=== PATIENT | male | born 1940 | race Two or more races ===

== ENCOUNTER 2024-08-07 14:51 | Inpatient (IN) | payer MEDICARE, MEDICAID, SELFPAY ==
[2024-08-07] VITALS (15 sets, daily range): BP systolic 125–150; BP diastolic 74–102; PULSE 82–97; RESP 14–97; TEMP 36.1–36.7; O2SAT 91–97; BMI 34.4
--- NOTE | 2024-08-07 15:05 | XR_ITS ---
Examination: CT brain head without contrast. 2-D sagittal coronal reconstructions Date and time of exam:August 07, 2024 1538 hrs. Indications: Weakness headache and left arm weakness beginning 3 days ago CTDI: vol (mGy):53.6 DLP: (mGycm):1017 Technique: Multiple CT axial sections of the brain have been obtained, 5 mm slice thickness. Contrast has not been administered. 2-D sagittal, coronal reconstructions have been obtained Low dose protocols were performed. One or more of the following dose reduction techniques were used; automated exposure control, adjustment of the mA and/or KV according to patient size, use of iterative reconstruction technique. Findings: No significant ventricular enlargement. Intra-axial or extra-axial hemorrhage density is not seen. No mass effect or midline shift Basal cisterns are not remarkable. Fourth ventricle is midline. Cranial vault intact. Impression: Negative for acute hemorrhage, mass effect or midline shift As clinically warranted, consider brain MRI follow-up
--- NOTE | 2024-08-07 15:05 | EKG_ITS ---
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
--- NOTE | 2024-08-07 15:06 | PD.EDADULT ---
ED General RME/HPI General Chief complaint: Weakness Stated complaint: weakness to left arm, numbness Time Seen by Provider: 08/07/24 15:04 Arrival date/time: 08/07/24 14:51 CC: Left arm weakness HPI ongoing for the past 3 days denies fever chills shortness of breath difficulty breathing headache nausea vomiting diarrhea. No prior history of similar events. Patient has a history of hypertension. Patient denies chest pain facial droop slurred speech word salad shortness of breath or difficulty breathing. Review of the medical record show there is no prior visit to this facility. Related Data Allergies Allergy/AdvReac Type Severity Reaction Status Date / Time NKA* Allergy Uncoded 12/16/10 14:50 Review of Systems Review of Systems Narrative Review of Systems: GEN: No fever, no chills, no weight loss EYES: No discharge, no visual changes, no pain HEENT: No ear pain, no congestion, no sore throat PULM: No shortness of breath, no cough, no congestion CV: No chest pain, no dyspnea on exertion, no palpitations GI: No nausea, no vomiting, no diarrhea, no pain, no constipation : No frequency, no urgency, no dysuria MUSC/SKEL: No joint pain, no back pain+ left arm weakness SKIN: No rash PSYCH: No hallucinations, no depression HEME/LYMPH: No easy bleeding or bruising tendencies NEURO: No weakness, no headache ED Exam Narrative Physical exam: [General: Not in any acute distress Head normocephalic HEENT: Within acceptable limits Neck is supple nontender Chest equal chest rise nontender to palpation Respiratory: Clear to auscultation no wheezes crackles or rubs CV: Rate rhythm is regular no murmurs rubs or clicks Abdomen is distended secondary to body habitus soft nontender no masses positive bowel sounds all 4 quadrants Back: No CVA tenderness no spinous process tenderness from cervical spine thoracic and lumbar spine Skin: Intact no petechiae rash induration ulceration or crepitus Extremities: Left upper extremity weakness significant pronator drift, moving all extremity against resistance cap refill less than 2 seconds neurosensory intact Neuro: Awake alert oriented x3 Glascow coma 15 no focal deficits] Course Quality Measures none Orders Category Date Time Status EKG (ED ONLY) *Do not use* NOW Care 08/07/24 15:05 Completed Insert IV NOW Care 08/07/24 15:21 Active Consult to Neurology / Tele-Neurology Stat Cons 08/07/24 17:[address] head/brain wo con Stat Exams 08/07/24 15:05 Completed EKG (ED Only) Stat Exams 08/07/24 15:05 Draft B-Type Natriuretic Peptide Stat Lab 08/07/24 15:19 Completed CBC Stat Lab 08/07/24 15:19 Completed Comprehensive Metabolic Panel Stat Lab 08/07/24 15:19 Completed Drug Screen,Urine Stat Lab 08/07/24 16:07 Completed LDH (Lactate Dehydrogenase) Stat Lab 08/07/24 15:19 Completed Magnesium Stat Lab 08/07/24 15:19 Completed Partial Thromboplastin Time Stat Lab 08/07/24 15:19 Completed Prothrombin Time with INR Stat Lab 08/07/24 15:19 Completed Urinalysis Stat Lab 08/07/24 16:07 Completed Vital Signs Vital signs: Vital Signs Temperature 96.9 F 08/07/24 15:12 Pulse Rate 91 08/07/24 15:12 Respiratory Rate 19 08/07/24 15:12 Blood Pressure 133/82 H 08/07/24 15:12 Pulse Oximetry (%) 96 08/07/24 15:12 Oxygen Delivery Method Room Air 08/07/24 15:12 [facility] Patient data External records reviewed:: [facility] previous records Clinical information provided by:: patient and family Social determinants that could affect healthcare access:: none Patient has the following chronic illnesses:: Hypertension How is presenting disease/condition affected by chronic disease/condition?: uneffected by Evaluation data The following diagnostics were reviewed and interpreted by me:: lab results, radiology exam(s) and EKG tracing(s) Lab and/or radiology exams considered but not ordered:: CBC shows no acute leukocytosis anemia thrombocytopenia CMP shows no acute electrolyte imbalances renal impairment transaminitis or T. bili elevation CT is unremarkable for any acute finding quires emergent or meet intervention. EKG performed at 1528 shows ventricular rate of 82 ME interval 191 QRS of 133 QTc 423 there is sinus rhythm right bundle branch block. No old EKG for comparison. Interpretation Summary: Patient continues to have persistent weakness in the left upper extremity, patient's case discussed with Dr. Lockwood neurology who agrees the patient needs a workup for inpatient. Family and patient are in agreement with this plan patient's case discussed with Dr Erich chu Dr. Cordova, attending, who agrees to accept the patient for admission. Medications Medications considered but not ordered:: None none Medication administrations:: None Consultations Consultation(s) initiated? (list below): Yes Diagnosis Differential Diagnosis ED Complaint MDM: CVA TIA intercranial hemorrhage Most likely diagnosis given after review of the tests above:: CVA Admission Indicated Admission indicated?: indicated Explain why admission is indicated or not indicated:: Requires further medical management Admission Request Was there a request for admission?: No Disposition Plan Disposition Plan: Admit Medical Decision Making Differential Diagnosis Differential Diagnosis: CVA TIA intercranial hemorrhage Lab Data 08/07/24 15:19 08/07/24 15:19 Labs: Lab Results 08/07/24 08/07/24 Range/Units 15:19 16:07 WBC 8.8 (3.8-10.6) Thou/mm3 RBC 4.78 (4.50-5.90) Miln/mm3 Hgb 14.2 (13.5-16.0) g/dL Hct 41.9 (41.0-53.0) % MCV 88 (80-100) fL MCH 29.7 (25.0-35.0) pg MCHC 33.9 (31.0-37.0) g/dl RDW Std Deviation 41.0 (35.1-43.9) fL Plt Count 353 (140-440) Thou/mm3 Neut % (Auto) 66 (37-80) % Lymph % (Auto) 24 (10-50) % [place] % (Auto) 8 (0-12) % Eos % (Auto) 2 (0-10) % Baso % (Auto) 0 (0-2.5) % Neut # (Auto) 5.8 (1.8-7.7) Thou/mm3 Lymph # (Auto) 2.1 (1.0-4.8) Thou/mm3 [place] # (Auto) 0.7 (0.0-0.8) Thou/mm3 Eos # (Auto) 0.2 (0.0-0.5) Thou/mm3 Baso # (Auto) 0.0 (0.0-0.2) Thou/mm3 Immature Gran # (Auto) 0.02 H (0.00-0.00) Thou/mm3 Absolute Nucleated RBC 0.00 (0.00-0.00) Thou/mm3 Immature Gran % 0 (0-0) % Nucleated RBC % 0 (0) /100 WBC PT 10.7 (9.0-12.2) Seconds INR 1.0 (0.9-1.3) APTT 29.4 (22.0-36.0) Seconds Sodium 139 (136-145) mMol/L Potassium 4.3 (3.4-5.1) mMol/L Chloride 104 (98-107) mMol/L Carbon Dioxide 25.5 (20.0-31.0) mMol/L Anion Gap 10 (7-16) BUN 18 (9-23) mg/dL Creatinine 1.1 (0.6-1.3) mg/dL Estim Creat Clear Calc 47.3 L (>60) mL/min eGFR > 60 (60 - ) See Note BUN/Creatinine Ratio 16 (12-20) Ratio Glucose 109 H (74-106) mg/dL Calculated Osmolality 280 (275-295) Calcium 10.5 (8.3-10.6) mg/dL Corrected Calcium 10.5 H (8.5-10.1) mg/dL Magnesium 2.2 (1.6-2.6) mg/dL Total Bilirubin 0.3 (0.3-1.2) mg/dL AST 10 (0-34) U/L ALT 24 (10-49) U/L Alkaline Phosphatase 82 (46-116) U/L Lactate Dehydrogenase 164 (120-246) U/L B-Natriuretic Peptide < 20 (0-100) pg/mL Total Protein 7.4 (5.7-8.2) gm/dL Albumin 4.8 (3.4-4.8) gm/dL Globulin 2.6 (2.3-3.5) gm/dL Albumin/Globulin Ratio 1.8 (1.2-2.2) Ur Collection Type Clean Catch Urine Color Colorless A (Lt Yel-Yel) Urine Clarity Clear (Clear/Hazy) Urine pH 7.0 (5.0-7.0) Ur Specific [place] 1.009 (1.001-1.035) Urine Protein Negative (Neg - Trace) Urine Glucose (UA) Negative (Negative) Urine Ketones Negative (Negative) Urine Blood Negative (Negative) Urine Nitrite Negative (Negative) Urine Bilirubin Negative (Negative) Urine Urobilinogen (Auto) Negative (0.0-1.0) mg/dL Ur Leukocyte Esterase Negative (Negative) Urine RBC 1 (0-3) /hpf Urine WBC < 1 (0-5) /hpf Ur Squamous Epith Cells 0 (0-5) /hpf Urine Bacteria None (None) Urine Opiates Screen Negative (Negative) Urine Fentanyl Screen Negative (Negative) Ur Barbiturates Screen Negative (Negative) U Amphetamin/Meth Scrn Negative (Negative) U Benzodiazepines Scrn Negative (Negative) U Cocaine Metab Screen Negative (Negative) U Marijuana (THC) Screen Negative (Negative) Discharge Plan Plan Patient Disposition: Other Care w/in Hosp ([facility]) Patient condition on transfer: Stable Prescriptions/Referrals Referrals: Johny Worley FNP [Primary Care Provider] - In 1 week Problem List Clinical Impression: Left arm weakness Patient/Caregiver Discharge Instructions Print Language: Maltese Stand Alone Forms: Kristal Award Info., Patient Portal Info Letter CHIO/ALEX Supervising Physician NICOLAS Supervising Physician: Herb Santizo ENP
--- NOTE | 2024-08-07 15:30 | PC.NURSE ---
PT CAME IN WITH C/O LEFT ARM WEAKNESS SINCE 10 AM YESTERDAY. PER FAMILY PT BEGAN FEELING TINGLING IN BOTH ARMS 3 DAYS AGO AND STATES IT WENT AWAY BUT YESTERDAY AT 10 AM PT COULD NOT LIFT HIS LEFT ARM. NO PAIN REPORTED. MODERATE WEAKNESS IS NOTED TO LEFT ARM. NO HEADACHE OR BLURRED VISION IS REPORTED. PT ALERT AND ORIENTED AND ABLE TO FOLLOW COMMANDS. SPEECH CLEAR. EYES PERRL AT SIZE 3. PT ON CC MONITOR.
--- NOTE | 2024-08-07 15:35 | PC.NURSE ---
PT TO CT
[2024-08-07 15:39] LABS: Basophils % (Auto) 0 % (0-2.5); Eosinophils # (Auto) 0.2 Thou/mm3 (0.0-0.5); Eosinophils % (Auto) 2 % (0-10); Hematocrit 41.9 % (41.0-53.0); Hemoglobin 14.2 g/dL (13.5-16.0); Immature Granulocytes % (Auto) 0 % (0-0); Immature Granulocytes Auto 0.02 Thou/mm3 (0.00-0.00); Lymphocytes # (Auto) 2.1 Thou/mm3 (1.0-4.8); Lymphocytes % (Auto) 24 % (10-50); Mean Corpuscular HGB Conc 33.9 g/dl (31.0-37.0); Mean Corpuscular Hemoglobin 29.7 pg (25.0-35.0); Mean Corpuscular Volume 88 fL (80-100); Monocytes # (Auto) 0.7 Thou/mm3 (0.0-0.8); Monocytes % (Auto) 8 % (0-12); Neutrophils # (Auto) 5.8 Thou/mm3 (1.8-7.7); Neutrophils % (Auto) 66 % (37-80); Nucleated Red Blood Cell % 0 /100 WBC (0); Platelet Count 353 Thou/mm3 (140-440); Red Blood Count 4.78 Miln/mm3 (4.50-5.90); White Blood Count 8.8 Thou/mm3 (3.8-10.6)
[2024-08-07 15:49] LABS: Partial Thromboplastin Time 29.4 Seconds (22.0-36.0); Prothrombin Time 10.7 Seconds (9.0-12.2)
[2024-08-07 15:52] LABS: Alanine Aminotransferase 24 U/L (10-49); Albumin, Serum 4.8 gm/dL (3.4-4.8); Albumin/Globulin Ratio 1.8 (1.2-2.2); Alkaline Phosphatase 82 U/L (46-116); Anion Gap 10 (7-16); Aspartate Amino Transferase 10 U/L (0-34); BUN/Creatinine Ratio 16 Ratio (12-20); Bilirubin,Total 0.3 mg/dL (0.3-1.2); Blood Urea Nitrogen 18 mg/dL (9-23); Calcium 10.5 mg/dL (8.3-10.6); Calcium (Corrected) 10.5 mg/dL (8.5-10.1); Carbon Dioxide 25.5 mMol/L (20.0-31.0); Chloride 104 mMol/L (98-107); Creatinine (Component) 1.1 mg/dL (0.6-1.3); Estimated Creatinine Clearance 47.3 mL/min (>60); Globulin 2.6 gm/dL (2.3-3.5); Glucose 109 mg/dL (74-106); LDH (Lactate Dehydrogenase) 164 U/L (120-246); Magnesium 2.2 mg/dL (1.6-2.6); Osmolality,Calculated 280 (275-295); Potassium 4.3 mMol/L (3.4-5.1); Sodium 139 mMol/L (136-145); Total Protein 7.4 gm/dL (5.7-8.2); eGFR > 60 See Note
[2024-08-07 16:19] LABS: Collection Type, Urine Clean Catch; Squamous Epithelial Cell,Urine 0 /hpf (0-5)
[2024-08-07 16:20] LABS: B-Type Natriuretic Peptide < 20 pg/mL (0-100)
[2024-08-07 16:31] LABS: Amphetamine/Methamp Scrn,U Negative (Negative); Barbiturate Screen,Urine Negative (Negative); Benzodiazepines Screen,Urine Negative (Negative); Benzoylecgonine Screen, Ur Negative (Negative); Fentanyl Screen,Urine Negative (Negative); Opiate Screen,Urine Negative (Negative); THC Screen,Urine Negative (Negative)
[2024-08-07 16:47] LABS: Bilirubin,Urine Negative (Negative); Blood,Urine Negative (Negative); Clarity,Urine Clear (Clear/Hazy); Color,Urine Colorless (Lt Yel-Yel); Glucose, Urine Negative (Negative); Ketones,Urine Negative (Negative); Leukocyte Esterase,Urine Negative (Negative); Nitrite,Urine Negative (Negative); Protein,Urine Negative (Neg - Trace); RBC,Urine 1 /hpf (0-3); Specific Gravity,Urine 1.009 (1.001-1.035); Urobilinogen,Urine Negative mg/dL (0.0-1.0); WBC,Urine < 1 /hpf (0-5)
--- NOTE | 2024-08-07 18:09 | ECHO_ITS ---
Transthoracic Echo Report Ht (in): 62 Wt (lb): 188 Exam Location: [facility] Status: Inpatient Web Manager: Almaz Guerrero Indications: Procedure Performed: BP: 102 / 69 HR: 84 Rhythm: Sinus Technical Quality: Fair Contrast: Agitated Saline Total Dose (mL): MEASUREMENTS (Male / Female) Normal Values 2D ECHO LVOT Diameter 1.9 cm LA Volume Index 15.9 cm?/m? 16 - 28 cm?/m? Ascending Aorta Diameter 3.2 cm M-MODE Aortic Root Diameter MM 3.3 cm LA Systolic Diameter MM 4.2 cm LA Ao Ratio MM 1.3 AV Cusp Separation MM 2.0 cm DOPPLER AV Peak Velocity 143.0 cm/s AV Peak Gradient 8.2 mmHg AV Mean Gradient 4.0 mmHg AV Velocity Time Integral 25.5 cm LVOT Peak Velocity 120.0 cm/s LVOT Peak Gradient 5.8 mmHg LVOT Velocity Time Integral 22.4 cm LVOT Cardiac Index 2708.8 cm?/min?m? AV Area Cont Eq vti 2.5 cm? AV Area Cont Eq pk 2.4 cm? MV Peak Velocity 97.6 cm/s MV Peak Gradient 3.8 mmHg MV Mean Velocity 62.2 cm/s MV Mean Gradient 2.0 mmHg MV Area PHT 4.3 cm? Mitral E Point Velocity 65.0 cm/s Mitral A Point Velocity 84.9 cm/s Mitral E to A Ratio 0.8 LV E' Lateral Velocity 3.9 cm/s Mitral E to LV E' Lateral Ratio 16.6 LV E' Septal Velocity 5.2 cm/s Mitral E to LV E' Septal Ratio 12.5 FINDINGS Left Ventricle Normal left ventricular size, wall thickness, systolic function with no obvious regional wall motion abnormalities. The ejection fraction is visually estimated at 55%. Right Ventricle The right ventricle is normal in size and systolic function. Left Atrium The left atrium is normal by two-dimensional, color flow and Doppler imaging with no structural abnormalities, no thrombus formation present. Right Atrium The right atrium is normal by two-dimensional imaging, color flow and Doppler imaging with no struct ural abnormalities, no thrombus formation present. Atrial Septum The interatrial septum appears normal with no evidence of a shunt. Aorta The aorta is normal by two-dimensional, color flow and Doppler interrogation. Mitral Valve The mitral valve is normal by two-dimensional, color flow and Doppler interrogation. There is trace mitral valve regurgitation. Aortic Valve The aortic valve is trileaflet and normal by two-dimensional, color flow and Doppler interrogation. There is no significant aortic valve regurgitation. Tricuspid Valve The tricuspid valve is normal by two-dimensional, color flow and Doppler interrogation. There is no significant tricuspid valve regurgitation. Pulmonic Valve The pulmonic valve is not well visualized. There is no significant pulmonic valve regurgitation. Vessels The pulmonary artery appears normal. The inferior vena cava pulmonary and hepatic veins appear alma l. Pericardium The pericardium is normal by two-dimensional imaging. There is no significant pericardial effusion. CONCLUSIONS Negative bubble study. No evidence of PFO or ASD. Normal LV size and function. Estimated EF 55-60% Normal RV size and function Trace mitral and trace tricuspid regurgitation Farzana Temple (Electronically Signed) Final Date: 09 August 2024 17:57
--- NOTE | 2024-08-07 18:11 | XR_ITS ---
Examination: CTA carotids with intravenous contrast CTA brain, head with intravenous contrast. 2-D sagittal, coronal reconstructions. 3-D reconstructions. Exam date and time: August 07, 2024 1857 hrs. Indications: Onset weakness in the left arm beginning 3 days ago CTDI: vol (mGy) 16.5 DLP: (mGycm) 483 Technique: Multiple CTA axial brain, head carotid images post intravenous contrast injection 100 cc, [id number]. 2-D sagittal, coronal reconstructions. 3-D reconstructions, 3-D post processing including vascular maximum intensity projection images. Low dose protocols were performed. One or more of the following dose reduction techniques were used; automated exposure control, adjustment of the mA and/or KV according to patient size, use of iterative reconstruction technique. Findings: 80-90% stenosis proximal right internal carotid artery No significant stenosis left internal carotid artery Codominant vertebral arteries with no critical stenoses No cerebral large vessel arterial occlusions, thrombus, dissection or cerebral aneurysm Impression: 80-90% stenosis proximal right internal carotid artery No cerebral arterial large vessel occlusions or thrombus
--- NOTE | 2024-08-07 18:21 | ESHP_ITS ---
Documentation for date of: 08/07/24 HPI History of Present Illness History of present illness: cc: upper extremity weakness Patient is a 83-year-old male with a past medical history of hypertension on lisinopril 20 mg daily who presented to the emergency room with a chief complaint of upper extremity weakness of the left arm. Patient stated left upper extremity weakness, first began on 08/06/2024. Patient stated that for started about 10 AM on Thursday morning and resolved several hours later near the afternoon. Symptoms then returned on Thursday morning again and have persisted since then. Patient continues to have upper extremity sensation bilaterally. Patient denied any burning sensation or paresthesia. Patient denied trauma including up his arm. Patient denied previous history of surgery to area. Patient denied history of injury. Patient denied pain. Patient stated that he does sometimes sleep on his side and may wake up with neck pain denied this being the case today. Patient denied any headaches or visual changes. Patient denied any loss of consciousness. Admitted on 08/07/2024 for CVA work up. ER course: In the emergency room, patient's vitals were stable blood pressure was 133/82, heart rate 91, respiratory rate 19, and saturating well on room air. CMP within normal limits. GFR greater than 60. CBC unremarkable. Glucose 109. Corrected calcium 10.5. BNP less than 20. EKG findings sinus rhythm. UA negative. Head CT negative. PMH: HTN Past Surgical History: Previous Abdominal history-can not recall what the procedure was for Home Medication: Lisinopril 20 mg QDay Social History: Denied Illicit Drug Use Denied Alcohol Use Disorder Never Smoker Allergies: None Code Status: DNI Review of Systems Review of Systems Narrative Review of Systems: General appearance: NO weight change, NO fatigue, NO weakness, NO fever, NO chills, NO night sweats, No cough Skin: NO rash, NO itching, NO sores, NO moles HEENT: NO Trauma, NO nausea, NO vomiting, NO visual changes, NO blurry vision, NO double vision, NO tinnitus, NO vertigo, NO ear discharge, NO rhinorrhea, NO stuffiness, NO sneezing, NO allergy, NO epistaxis. NO Hoarseness, NO sore throat, NO swollen neck. Cardiac: NO Palpitations, NO dyspnea on exertion, NO orthopnea, NO paroxysmal nocturnal dyspnea, NO edema Respiratory: NO Shortness of Breath, NO Wheezing, NO Cough, NO Sputum, NO hemoptysis GI:NO appetite, NO nausea, NO vomiting, NO dysphagia, NO changes in bowel frequency, NO stool color, NO diarrhea, NO constipation, NO hemetemesis, NO hemorrhoids, NO melena, NO hematechezia, NO abdominal pain, NO jaundice Renal: NO frequency, NO hesitancy, NO urgency, NO hematuria, NO nocturia, NO incontinence MSK: NO muscle weakness, NO gout, NO arthritis, NO muscle stiffness Neuro: NO headaches, NO tremors, NO weakness, NO paralysis, NO seizures, NO loss of consciousness, NO numbness, left upper extremity weakness Hem: NO anemia, NO easy bruising/bleeding, NO petechiae, NO purpura Endo: NO heat/cold intolerance, NO excessive sweating, NO polyuria, NO polydipsia, NO polyphagia, NO thyroid problems, NO diabetes Pysch: NO mood, NO anxiety, NO depression Exam Vital Signs Temp Pulse Resp BP Pulse Ox O2 Del Method 98.0 F 84 20 150/80 H 96 Room Air 08/07/24 18:00 08/07/24 18:00 08/07/24 18:00 08/07/24 18:00 08/07/24 18:00 08/07/24 18:00 Narrative Exam General Appearance: Alert & Oriented X3, well-nourished male who is lying in bed in no acute distress HEENT: Skull symmetrical and atraumatic. Conjunctivae pink and moist. Pupils equal, round, reactive to light and accommodation (PERRL). External ear without lesion or discharge. Straight, nares patient, mucosa pink, no discharge. No thyroid nodule appreciated. No cervical lymphadenopathy. Cardio: Normal Rate and Rhythm with S1 and S2 heart sounds. No murmurs or extra heart sounds auscultated. No bruits on carotid auscultation. No peripheral edema or cyanosis. Lungs: Symmetric with good expansion. Chest and back non-tender. Breath sounds vesicular without crackles, wheezing or rhonchi Abdomen: Non-tender, Non-distended, Normal Reactive Bowel Sounds Neuro: Alert, cooperative, oriented to person, place, and time. Speech clear. CN grossly intact. Lower motor strength 5/5. Left upper extremity weakness, patient arm externally rotated, clawed hands, full sensation, unable to abduct above 90 degree. No scapular winging noted. Sensation intact. Results: Labs 08/09/24 05:27 08/09/24 05:27 Labs: Short CBC 08/07/24 Range/Units 15:19 WBC 8.8 (3.8-10.6) Thou/mm3 Hgb 14.2 (13.5-16.0) g/dL Hct 41.9 (41.0-53.0) % Plt Count 353 (140-440) Thou/mm3 BMP 08/07/24 15:19 Sodium 139 Potassium 4.3 Chloride 104 Carbon Dioxide 25.5 BUN 18 Creatinine 1.1 Glucose 109 H Calcium 10.5 Liver Function 08/07/24 Range/Units 15:19 Total Bilirubin 0.3 (0.3-1.2) mg/dL AST 10 (0-34) U/L ALT 24 (10-49) U/L Alkaline Phosphatase 82 (46-116) U/L Albumin 4.8 (3.4-4.8) gm/dL Urine 08/07/24 Range/Units 16:07 Urine Color Colorless A (Lt Yel-Yel) Urine Clarity Clear (Clear/Hazy) Urine pH 7.0 (5.0-7.0) Ur Specific [employer] 1.009 (1.001-1.035) Urine Protein Negative (Neg - Trace) Urine Glucose (UA) Negative (Negative) Quality Measures Quality Measures none Advance care planning discussed with:: patient and child Medications Home Medications and Allergies Home Medications ?Medication ?Instructions ?Recorded ?Confirmed ?Type calcium 600 mg (as 1 tab PO QDAY 08/07/24 08/07/24 History carbonate)-vitamin D3 10 mcg (400 unit) tablet Allergies Allergy/AdvReac Type Severity Reaction Status Date / Time No Known Allergies Allergy Unverified 08/08/24 08:38 Visit Medications Acetaminophen (Acetaminophen 325 Mg Tablet) 650 mg PO Q6H PRN PRN Reason: Mild Pain 1-3 or Fever >100.4 Stop: 09/06/24 17:50 Hydrocodone Bitart/Acetaminophen (Hydrocodone/Apap 5/325 Tablet) 1 tab PO Q4HR PRN PRN Reason: PAIN SCALE 4-6 (Moderate Stop: 08/12/24 17:50 Aspirin (Aspirin Ec 81 Mg Tabec) 81 mg PO QDAY EVELINE Stop: 09/06/24 18:14 Atorvastatin Calcium (Atorvastatin Calcium 20 Mg Tablet) 40 mg PO HS EVELINE Stop: 09/06/24 20:59 Heparin Sodium (Porcine) (Heparin Sod Inj 5000 Unit/Ml Vial) 5,000 unit SC Q12HR EVELINE Stop: 08/21/24 20:59 Lisinopril (Lisinopril 20 Mg Tablet) 20 mg PO QDAY [facility] Stop: 09/07/24 08:59 Assessment & Plan Plan Patient is a 83-year-old male with a past medical history of hypertension on lisinopril 20 mg daily who was admitted for CVA work up. #CVA Etiology: Stroke can not be ruled out given history of left upper extremity weakness, given past medical history of hypertension. Last well time was greater than >24 hours, patient out of TPA window. No Permissive HTN. Pending recommendations by neurology for MRI. DDx: Upper brachial plexus can not be ruled out given externally rotated arm vs lower brachial plexus injury given clawed fingers. No loss of sensation. vs less likely myopathy. Diagnostics: CT Head (08/07/2024): Negative for acute hemorrhage, mass effect or midline shift EKG (08/07/2023): Sinus Rhythm UA negative Plan: -Aspirin 81 mg Qday -Atorvastatin 40 mg HS -CTA Neck & Head -Neuro Checks -Bedside swallow screen and evaluation -Euglycemia and avoid Hyperthermia -Acetaminophen PRN -BNP and CBC -A1c -Lipid Panel -TSH -Echo -Patient out of TPA window, symptoms first started >24 hours ago. No need for permissive HTN, Restarted Lisinopril -Consult Neurology, Dr. Lockwood, appreciate recommendations #HTN Patient has a past medical hisotry of hypertension on Lisnopril 20 mg Qday. Given patient is out of TPA window and last well time has been greater than 24 hours, restart Lisinopril 20 mg Qday on 08/08/2023 at 9:00 AM Plan -restart Lisinopril 20 mg Qday on 08/08/2023 -if systolic BP >180 or Diastolic BP >110 may given Labetolol. Health Maintenance: Disp: Pt is currently admitted to floors for further management of CVA work up, awaiting CTA head/neck. FEN: regular diet DVT: on subQ heparin Code: Full Code - The patient's plan was discussed with attending Dr. Cordova and senior residents Dr. Bob Britt MD PGY1 Internal Medicine Senior Resident Attestation: I discussed with and supervised the nurse intern physician involved in the care of this patient. I personally saw and examined the patient and discussed the assessment and plan with the entire medicine team, including my attending. I agree with the assessment and plan as documented above. Patient is a 83-year-old male presented to the emergency department due to left upper extremity weakness last known well time was 48 hours ago. Patient has history of hypertension treated with lisinopril 20 mg once a day. Patient denies any other symptoms, dizziness, palpitations. Neurology consulted recommended admission for CVA workup. CT head in the ED was negative. We admit the patient. For CVA workup. Will get a CTA head and neck and MRI. Will start statin and aspirin. Will get physical therapy. - Patient's care was discussed with my attending physician. Osvaldo Rojas MD Internal Medicine PGY-3 Attending Provider Attestation/Addendum I attest that I was physically present for the evaluation, physical examination, lab and imaging review of the patient with the residents. I discussed the case with the residents and agree with the findings and plans of care as documented above. Patient is a 83 years old male with past medical history of hypertension who presented to the ED with complaint of left upper limb weakness. Patient had his first episode yesterday morning, which resolved on its own. He had second episode today following which he decided to visit the ED. Not a candidate for tPA. At bedside, has weakness of his left arm, still able to grab fingers, weaker compared to the right. CT head was done which was negative for acute hemorrhage, mass effect or midline shift. Neurology was consulted by ED, recommended admission for CVA workup. We will admit the patient for CVA workup. Started on aspirin, statin. We will obtain CTA head and neck, MRI brain, echocardiography. Dariana Cordova MD
[2024-08-07] MEDS: ASPIRIN EC 81 MG TABEC PO (18:43)
--- NOTE | 2024-08-07 18:50 | PC.NURSE ---
PT TO CT
[2024-08-07] MEDS: ATORVASTATIN CALCIUM 20 MG TABLET 40 MG PO (21:11)
[2024-08-07] MEDS: HEPARIN SOD INJ 5000 UNIT/ML VIAL SC (21:13)
[2024-08-08] VITALS (10 sets, daily range): BP systolic 112–150; BP diastolic 71–94; PULSE 66–103; RESP 17–94; TEMP 36.3–36.9; O2SAT 91–94; BMI 33.9
--- NOTE | 2024-08-08 | XR_ITS ---
Examinations: MRI Brain without intravenous contrast. MRA brain without intravenous contrast. MRA carotids without intravenous contrast 3-D vascular reconstructions Date and time of exam: August 08, 2024 1105 hours INDICATIONS: Stroke alert August 07, 2024, onset focal neurologic deficit left arm weakness Technique: Multiple axial and sagittal images of the brain have been obtained MRA brain carotid images without contrast obtained, including 3-D postprocessing, vascular maximum intensity projection images Findings: S[place] is not enlarged. The optic chiasm and infundibular stalk are not remarkable. Prepontine and interpeduncular cisterns are not enlarged. No localized enlargement of the medulla or miguel. Fourth ventricle and cerebellar tonsils normal in position. Subacute hemorrhage is not seen. Fourth ventricle is midline. Mass in the cerebellopontine angle region is not evident. 7th and 8th nerve complexes exhibits symmetry. Globes are symmetrical with no retro-orbital mass. Increased white matter signal significant Diffusion-weighted images demonstrate 3 mm focus restricted diffusion right caudate nucleus, 6 mm 1 mm 2 mm foci restricted diffusion right parietal lobe Mass-effect upon the ventricular system is not identified. MRA carotid images severely degraded by patient motion. 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
[2024-08-08 06:01] LABS: Basophils # (Auto) 0.1 Thou/mm3 (0.0-0.2); Basophils % (Auto) 1 % (0-2.5); Eosinophils # (Auto) 0.2 Thou/mm3 (0.0-0.5); Eosinophils % (Auto) 2 % (0-10); Hematocrit 40.8 % (41.0-53.0); Hemoglobin 13.8 g/dL (13.5-16.0); Immature Granulocytes % (Auto) 0 % (0-0); Immature Granulocytes Auto 0.02 Thou/mm3 (0.00-0.00); Lymphocytes # (Auto) 1.8 Thou/mm3 (1.0-4.8); Lymphocytes % (Auto) 23 % (10-50); Mean Corpuscular HGB Conc 33.8 g/dl (31.0-37.0); Mean Corpuscular Hemoglobin 29.9 pg (25.0-35.0); Mean Corpuscular Volume 88 fL (80-100); Monocytes # (Auto) 0.6 Thou/mm3 (0.0-0.8); Monocytes % (Auto) 8 % (0-12); Neutrophils # (Auto) 5.2 Thou/mm3 (1.8-7.7); Neutrophils % (Auto) 66 % (37-80); Nucleated Red Blood Cell % 0 /100 WBC (0); Platelet Count 337 Thou/mm3 (140-440); RDW Standard Deviation 41.3 fL (35.1-43.9); Red Blood Count 4.62 Miln/mm3 (4.50-5.90); White Blood Count 7.8 Thou/mm3 (3.8-10.6)
[2024-08-08 06:26] LABS: Alanine Aminotransferase 20 U/L (10-49); Albumin, Serum 4.5 gm/dL (3.4-4.8); Albumin/Globulin Ratio 1.8 (1.2-2.2); Alkaline Phosphatase 72 U/L (46-116); Anion Gap 10 (7-16); Aspartate Amino Transferase 14 U/L (0-34); BUN/Creatinine Ratio 15 Ratio (12-20); Bilirubin,Total 0.5 mg/dL (0.3-1.2); Blood Urea Nitrogen 15 mg/dL (9-23); Carbon Dioxide 26.9 mMol/L (20.0-31.0); Cardiac Risk Estimate 4.3 RATIO (4.0-6.7); Chloride 104 mMol/L (98-107); Cholesterol 224 mg/dL (132-200); Estimated Creatinine Clearance 51.6 mL/min (>60); Globulin 2.5 gm/dL (2.3-3.5); Glucose 108 mg/dL (74-106); HDL Cholesterol 52 mg/dL (40-60); LDL Cholesterol,Calculated 133 mg/dL (0-130); Osmolality,Calculated 283 (275-295); Phosphorous 3.6 mg/dL (2.4-5.1); Sodium 141 mMol/L (136-145); Thyroid Stimulating Hormone 2.34 uIU/mL (0.55-4.78); Triglycerides 194 mg/dL (30-150); eGFR > 60 See Note
[2024-08-08 07:58] LABS: Glucose Estimated Average 117 mg/dL (80-131); Hemoglobin A1C 5.7 % Hgb (4.8-6.0)
[2024-08-08] MEDS: ASPIRIN EC 81 MG TABEC PO (09:56)
[2024-08-08] MEDS: HEPARIN SOD INJ 5000 UNIT/ML VIAL SC ×2 (09:56→20:29)
[2024-08-08] MEDS: Lisinopril 20 MG TABLET PO (09:56)
--- NOTE | 2024-08-08 11:50 | PC.PT ---
PT eval only. patient is I with transfers and ambulation without AD. Patient can ambulate with staff or family, prn.
--- NOTE | 2024-08-08 11:56 | PC.SS ---
Hermilo Griffin is a 83-year-old male admitted to [facility] for CVA Work Up. SS conducted bedside contact with the patient to complete initial assessment and to discuss discharge planning. Patient confirmed demographic information. Patient identifies dtr Maribel Griffin [phone] as his surrogate decision maker. Patient resides at home with family. Pt states he is typically able to complete all ADL?s independently, no need for any source of DME. Pts PCP is Dr. Johny Worley (last visit Thursday08/05/24) and pharmacy of choice is [facility]. DC option discussed and pt wishes to return home. Pts family will provide transportation upon DC. No further intervention required at this time, manager social services would be available to address any further concerns. DC Plan: Home Contact: Maribel Griffin [phone] PCP: Brunilda
[2024-08-08] MEDS: CLOPIDOGREL BISULFATE 75 MG TABLET PO (15:00)
--- NOTE | 2024-08-08 15:07 | ESPR_ITS ---
<Statement entered by Jacky Moscoso MD - 08/08/24 16:37> Patient was seen and examined at the bedside. Patient was admitted with left upper extremity weakness and CT brain was negative. MRI brain stroke protocol showed embolic infarction. We are awaiting an echocardiogram. We started with Plavix in addition to aspirin and statin therapy we are awaiting currently on echo and neurology recommendations. Vitals were stable. Labs are unremarkable this morning. Patient's family was updated regarding the diagnosis. All labs and orders were reviewed. I saw and examined the patient, and I agree with current management stated by Dr Mahad DO,PGY1. Plan of care was discussed with the attending physician and resident physician. Disclaimer: Despite multiple revisions, due to the dictation software being used, the document bellow may not be free of grammatical errors including phonetic/typographic errors. However, this does not deter from our commitment to providing health care in the patient's best interest in mind. Dr. Blanka MD, PGY 2 Documentation for date of: 08/08/24 Subjective Subjective Interval history: 08/08: No acute events overnight. Vital stable this a.m. CBC, CMP normal. Patient states that he feels much better than yesterday. Neuro exam performed again and it appears the patient's left upper extremity weakness has resolved. Strength appears 5 out of 5 on both lower and upper extremities bilaterally. Finger-nose testing normal, [id number] normal, no sensory neural deficits appreciated. CN II to XII intact. MRI obtained and shows a small embolic type acute infarct of the right caudate nucleus and right parietal lobe. Plavix added, pending neurology recommendations. Exam Vital Signs Temp Pulse Resp BP Pulse Ox O2 Del Method 97.8 F 93 18 142/83 H 93 L Room Air 08/08/24 08:00 08/08/24 15:05 08/08/24 15:05 08/08/24 09:56 08/08/24 08:00 08/08/24 08:00 Narrative Exam General Appearance: Alert & Oriented X3, well-nourished male who is lying in bed in no acute distress HEENT: Skull symmetrical and atraumatic. Conjunctivae pink and moist. Pupils equal, round, reactive to light and accommodation (PERRL). External ear without lesion or discharge. Straight, nares patient, mucosa pink, no discharge. No thyroid nodule appreciated. No cervical lymphadenopathy. Cardio: Normal Rate and Rhythm with S1 and S2 heart sounds. No murmurs or extra heart sounds auscultated. No bruits on carotid auscultation. No peripheral edema or cyanosis. Lungs: Symmetric with good expansion. Chest and back non-tender. Breath sounds vesicular without crackles, wheezing or rhonchi Abdomen: Non-tender, Non-distended, Normal Reactive Bowel Sounds Neuro: Alert, cooperative, oriented to person, place, and time. Speech clear. CN grossly intact. No scapular winging noted. Sensation intact. Objective Labs 08/08/24 05:06 08/08/24 05:06 Labs: Laboratory Results - last 24 hr 08/07/24 08/07/24 08/08/24 15:19 16:07 05:06 WBC 8.8 7.8 RBC 4.78 4.62 Hgb 14.2 13.8 Hct 41.9 40.8 L MCV 88 88 MCH 29.7 29.9 MCHC 33.9 33.8 RDW Std Deviation 41.0 41.3 Plt Count 353 337 Neut % (Auto) 66 66 Lymph % (Auto) 24 23 Upson % (Auto) 8 8 Eos % (Auto) 2 2 Baso % (Auto) 0 1 Neut # (Auto) 5.8 5.2 Lymph # (Auto) 2.1 1.8 Upson # (Auto) 0.7 0.6 Eos # (Auto) 0.2 0.2 Baso # (Auto) 0.0 0.1 Immature Gran # (Auto) 0.02 H 0.02 H Absolute Nucleated RBC 0.00 0.00 Immature Gran % 0 0 Nucleated RBC % 0 0 PT 10.7 INR 1.0 APTT 29.4 Sodium 139 141 Potassium 4.3 4.0 Chloride 104 104 Carbon Dioxide 25.5 26.9 Anion Gap 10 10 BUN 18 15 Creatinine 1.1 1.0 Estim Creat Clear Calc 47.3 L 51.6 L eGFR > 60 > 60 BUN/Creatinine Ratio 16 15 Glucose [address] Glu mg/dL 117 Hemoglobin A1c 5.7 Calculated Osmolality 280 283 Calcium 10.5 10.0 Corrected Calcium 10.5 H 10.0 Phosphorus 3.6 Magnesium 2.2 2.0 Total Bilirubin 0.3 0.5 AST 10 14 ALT 24 20 Alkaline Phosphatase 82 72 Lactate Dehydrogenase 164 B-Natriuretic Peptide < 20 Total Protein 7.4 7.0 Albumin 4.8 4.5 Globulin 2.6 2.5 Albumin/Globulin Ratio 1.8 1.8 Triglycerides 194 H Cholesterol 224 H LDL Cholesterol, Calc 133 H HDL Cholesterol 52 Cholesterol/HDL Ratio 4.3 TSH 2.34 Ur Collection Type Clean Catch Urine Color Colorless A Urine Clarity Clear Urine pH 7.0 Ur Specific [place] 1.009 Urine Protein Negative Urine Glucose (UA) Negative Urine Ketones Negative Urine Blood Negative Urine Nitrite Negative Urine Bilirubin Negative Urine Urobilinogen (Auto) Negative Ur Leukocyte Esterase Negative Urine RBC 1 Urine WBC < 1 Ur Squamous Epith Cells 0 Urine Bacteria None Urine Opiates Screen Negative Urine Fentanyl Screen Negative Ur Barbiturates Screen Negative U Amphetamin/Meth Scrn Negative U Benzodiazepines Scrn Negative U Cocaine Metab Screen Negative U Marijuana (THC) Screen Negative Quality Measures Quality Measures VTE prophylaxis (Heparin subcut) Advance care planning discussed with:: patient and child Assessment & Plan Assessment Current Active Medications: Generic Name Dose Route Start Last Admin Trade Name Freq PRN Reason Stop Dose Admin Acetaminophen 650 mg 08/07/24 17:51 Acetaminophen 325 Mg Tablet PO 09/06/24 17:50 Q6H PRN Mild Pain 1-3 or Fever >100.4 Hydrocodone Bitart/Acetaminophen 1 tab 08/07/24 17:51 Hydrocodone/Apap 5/325 Tablet PO 08/12/24 17:50 Q4HR PRN PAIN SCALE 4-6 (Moderate Aspirin 81 mg 08/07/24 18:15 08/08/24 09:56 Aspirin Ec 81 Mg Tabec PO 09/06/24 18:14 81 mg QDAY EVELINE Administration Atorvastatin Calcium 40 mg 08/07/24 21:00 08/07/24 21:11 Atorvastatin Calcium 20 Mg Tablet PO 09/06/24 20:59 40 mg HS EVELINE Administration Clopidogrel Bisulfate 75 mg 08/08/24 14:00 Clopidogrel Bisulfate 75 Mg Tablet PO 09/07/24 13:59 QDAY EVELINE Heparin Sodium (Porcine) 5,000 unit 08/07/24 21:00 08/08/24 09:56 Heparin Sod Inj 5000 Unit/Ml Vial SC 08/21/24 20:59 5,000 unit Q12HR EVELINE Administration Lisinopril 20 mg 08/08/24 09:00 08/08/24 09:56 Lisinopril 20 Mg Tablet PO 09/07/24 08:59 20 mg QDAY EVELINE Administration Plan Patient is a 83-year-old male with a past medical history of hypertension on lisinopril 20 mg daily who was admitted for CVA work up. 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 Last well time was greater than >24 hours, patient out of TPA window. No Permissive HTN. Pending recommendations by neurology for MRI. DDx: Upper brachial plexus can not be ruled out given externally rotated arm vs lower brachial plexus injury given clawed fingers. No loss of sensation. vs less likely myopathy. 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 daily -Neuro Checks -Bedside swallow screen and evaluation -Euglycemia and avoid Hyperthermia -Acetaminophen PRN -Echo pending -Patient out of TPA window, symptoms first started >24 hours ago. No need for permissive HTN, Restarted Lisinopril -Consult Neurology, Dr. Lockwood, appreciate recommendations #HTN Patient has a past medical hisotry of hypertension on Lisnopril 20 mg Qday. Given patient is out of TPA window and last well time has been greater than 24 hours, restart Lisinopril 20 mg Qday on 08/08/2023 at 9:00 AM Plan -Lisinopril 20 mg Qday -if systolic BP >180 or Diastolic BP >110 may given Labetolol. Health Maintenance: Disp: Pt is currently admitted to floors for further management of CVA work up, awaiting CTA head/neck. FEN: regular diet DVT: on subQ heparin Code: Full Code - The patient's plan was discussed with attending Dr. Cordova and senior residents on service Mahad Flanagan D.O. PGY1 Anesthesiology Attending Provider Attestation/Addendum I attest that I was physically present for the evaluation, physical examination, lab and imaging review of the patient with the residents. I discussed the case with the residents and agree with the findings and plans of care as documented above. At bedside today, patient states he is feeling well and does not have any complaints. His left arm weakness has resolved completely and is back to baseline. CTA head and neck showed 80 to 90% stenosis of proximal right carotid artery, MRI brain was ordered which showed small embolic type acute infarct of the right caudate nucleus and right parietal lobe. Continues to be on aspirin, Plavix, atorvastatin. Awaiting echo and neurology recommendations. Dariana Cordova MD
[2024-08-08] MEDS: ATORVASTATIN CALCIUM 20 MG TABLET 40 MG PO (20:29)
--- NOTE | 2024-08-08 23:22 | PD.NEUROCONS ---
History of Present Illness Data of Consult Requesting Physician: Greer Britt MD Primary Care Provider: ALEX Garber Consult Narrative History of present illness: Mr. Griffin is a 83-year-old male with hypertension on lisinopril 20 mg daily who presented to the ER with complaints of left upper extremity weakness of sudden onset since 08/06/2024. Patient stated that for started about 10 AM on Thursday morning and resolved several hours later near the afternoon. Symptoms then returned on Thursday again and have persisted since then. Denied any pain, burning sensation or paresthesia. Patient denied trauma to the neck or his arm. Patient denied previous history of surgery to area. Patient stated that he does sometimes sleep on his side and may wake up with neck pain denied this being the case today. Patient denied any headaches or visual changes. Patient denied any loss of consciousness or witnessed seizures prior. Workup in the ER: vitals were stable blood pressure was 133/82, heart rate 91, respiratory rate 19, and saturating well on room air. CMP within normal limits. GFR greater than 60. CBC unremarkable. Glucose 109. Corrected calcium 10.5. BNP less than 20. EKG findings sinus rhythm. UA negative. Imaging: Head CT negative. Patient got admitted to [facility] for stroke workup. Neurology was consulted to evaluate further. His left upper extremity weakness improved since admission. cc:: cc: Greer Britt MD Review of Systems Review of Systems Systems Reviewed: All systems reviewed, normal except as documented Meds Home Medications and Allergies Home Medications ?Medication ?Instructions ?Recorded ?Confirmed ?Type calcium 600 mg (as 1 tab PO QDAY 08/07/24 08/07/24 History carbonate)-vitamin D3 10 mcg (400 unit) tablet lisinopril 20 mg tablet 20 mg PO QDAY 08/07/24 08/07/24 History Allergies Allergy/AdvReac Type Severity Reaction Status Date / Time No Known Allergies Allergy Unverified 08/08/24 08:38 Exam - Neurology Vital Signs Temp Pulse Resp BP Pulse Ox O2 Del Method 97.8 F 103 H 19 119/94 H 91 L Room Air 08/08/24 20:00 08/08/24 21:37 08/08/24 21:37 08/08/24 20:00 08/08/24 20:00 08/08/24 20:00 Narrative Exam GENERAL APPEARANCE: Well hydrated, well-nourished in no acute distress. HEENT: Normocephalic, atraumatic, extraocular movements intact. Pupils: Equal reacting to light and accommodation NECK: Supple, no JVD or bruits. CARDIOVASULAR: Heart: S1, S2 heard, regular without S3-S4 or murmur no rubs or gallops. LUNGS/CHEST: Clear to auscultation bilaterally. No rails, rhonchi, or wheezing. Normal inspection. ABDOMEN: Soft, nontender, with normal bowel sounds. No pulsatile masses. No rebound, rigidity, or guarding. Normal inspection and palpation. EXTREMITIES: Normal inspection and palpation. No edema, clubbing or cyanosis. SKIN: Warm and dry without rashes. Normal inspection. MUSCULOSKELETAL: No cervical, thoracic, lumbar or midline bony tenderness. Normal inspection. NEURO: Alert, awake and oriented x3. Cranial nerves: II through XII grossly intact. Speech and language: Normal with no dysarthria or dysphasia. Motor system: Tone and bulk: Normal: Strength: 5 out of 5 in all 4 extremities; subtle left upper extremity pronator drift noted. Deep tendon reflexes: 2+ bilaterally symmetrical. Plantar reflex: Downgoing bilaterally. Sensory system: Intact to all modalities of sensation bilaterally. Coordination: Intact to [id number] and [id number] test bilaterally. Mild dysmetria in the left upper extremity. No intention tremors noted. Gait: Not tested. No signs of meningeal irritation noted. PSYCHIATRIC: Normal mood and affect. Results Labs 08/09/24 05:27 08/08/24 05:06 Labs: Short CBC 08/08/24 Range/Units 05:06 WBC 7.8 (3.8-10.6) Thou/mm3 Hgb 13.8 (13.5-16.0) g/dL Hct 40.8 L (41.0-53.0) % Plt Count 337 (140-440) Thou/mm3 BMP 08/08/24 05:06 Sodium 141 Potassium 4.0 Chloride 104 Carbon Dioxide 26.9 BUN 15 Creatinine 1.0 Glucose 108 H Calcium 10.0 Liver Function 08/08/24 Range/Units 05:06 Total Bilirubin 0.5 (0.3-1.2) mg/dL AST 14 (0-34) U/L ALT 20 (10-49) U/L Alkaline Phosphatase 72 (46-116) U/L Albumin 4.5 (3.4-4.8) gm/dL Assessment & Plan Assessment and plan (1) Acute ischemic stroke: Status: Acute Assessment and plan: Presented with acute onset of left upper extremity weakness and paresthesia MRI brain showed tiny acute lacunar infarct in the right caudate nucleus Follow-up with echocardiogram Continue with aspirin Plavix and statin (2) Hypertension: Status: Acute Assessment and plan: Continue with lisinopril
[2024-08-09] VITALS (11 sets, daily range): BP systolic 95–127; BP diastolic 62–83; PULSE 61–102; RESP 17–94; TEMP 36.3–36.7; O2SAT 91–97; BMI 32.9
[2024-08-09 06:37] LABS: Basophils % (Auto) 0 % (0-2.5); Eosinophils # (Auto) 0.2 Thou/mm3 (0.0-0.5); Eosinophils % (Auto) 2 % (0-10); Hematocrit 40.5 % (41.0-53.0); Hemoglobin 13.7 g/dL (13.5-16.0); Immature Granulocytes % (Auto) 0 % (0-0); Immature Granulocytes Auto 0.02 Thou/mm3 (0.00-0.00); Lymphocytes # (Auto) 2.3 Thou/mm3 (1.0-4.8); Lymphocytes % (Auto) 28 % (10-50); Mean Corpuscular HGB Conc 33.8 g/dl (31.0-37.0); Mean Corpuscular Volume 89 fL (80-100); Monocytes # (Auto) 0.7 Thou/mm3 (0.0-0.8); Monocytes % (Auto) 9 % (0-12); Neutrophils # (Auto) 4.8 Thou/mm3 (1.8-7.7); Neutrophils % (Auto) 60 % (37-80); Nucleated Red Blood Cell % 0 /100 WBC (0); Platelet Count 313 Thou/mm3 (140-440); RDW Standard Deviation 42.1 fL (35.1-43.9); Red Blood Count 4.56 Miln/mm3 (4.50-5.90)
[2024-08-09 07:01] LABS: Alanine Aminotransferase 21 U/L (10-49); Albumin, Serum 4.4 gm/dL (3.4-4.8); Albumin/Globulin Ratio 1.8 (1.2-2.2); Alkaline Phosphatase 67 U/L (46-116); Anion Gap 11 (7-16); Aspartate Amino Transferase 20 U/L (0-34); BUN/Creatinine Ratio 14 Ratio (12-20); Bilirubin,Total 0.5 mg/dL (0.3-1.2); Blood Urea Nitrogen 18 mg/dL (9-23); Calcium 9.7 mg/dL (8.3-10.6); Calcium (Corrected) 9.7 mg/dL (8.5-10.1); Carbon Dioxide 26.5 mMol/L (20.0-31.0); Chloride 104 mMol/L (98-107); Creatinine (Component) 1.3 mg/dL (0.6-1.3); Estimated Creatinine Clearance 39.1 mL/min (>60); Globulin 2.5 gm/dL (2.3-3.5); Glucose 100 mg/dL (74-106); Magnesium 2.1 mg/dL (1.6-2.6); Osmolality,Calculated 283 (275-295); Phosphorous 4.2 mg/dL (2.4-5.1); Potassium 3.8 mMol/L (3.4-5.1); Sodium 141 mMol/L (136-145); Total Protein 6.9 gm/dL (5.7-8.2); eGFR 54 See Note
[2024-08-09] MEDS: ASPIRIN EC 81 MG TABEC PO (08:08)
[2024-08-09] MEDS: HEPARIN SOD INJ 5000 UNIT/ML VIAL SC ×2 (08:08→21:54)
[2024-08-09] MEDS: CLOPIDOGREL BISULFATE 75 MG TABLET PO (08:08)
[2024-08-09] MEDS: POLYETHYLENE GLYCOL 17 GM PACKET PO (09:31)
--- NOTE | 2024-08-09 10:08 | PC.SS ---
SS update: met with patient to review Medicare rights. Plan is for patient to return home upon discharge. Family to transport the patient home. No needs identified.
--- NOTE | 2024-08-09 14:23 | ESPR_ITS ---
<Statement entered by Jacky Moscoso MD - 08/09/24 17:55> Patient was seen and examined at the bedside. Patient was doing well and her blood pressure was soft this morning. Neurologist recommended to continue aspirin Plavix and statin and will follow-up on echocardiogram read tomorrow morning and anticipate discharge in next 24 hours. Patient does have stenosis of carotid artery and per recommendation patient will need outpatient follow-up with vascular surgeon. Rest of the labs were stable. All labs and orders were reviewed. I saw and examined the patient, and I agree with current management stated by Dr Lorenza MD,PGY1. Plan of care was discussed with the attending physician and resident physician. Disclaimer: Despite multiple revisions, due to the dictation software being used, the document bellow may not be free of grammatical errors including phonetic/typographic errors. However, this does not deter from our commitment to providing health care in the patient's best interest in mind. Dr. Blanka MD, PGY 2 Documentation for date of: 08/09/24 Subjective Subjective Interval history: Patient is a 83-year-old male with a past medical history of hypertension on lisinopril 20 mg daily who was admitted for CVA work up and found to have right internal carotid artery stenosis and 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 No overnight events reported for patient. Patient examined at bedside. Patient denied chest pain or dyspnea. Patient stated improved upper motor function. Patient is pending Echo. Holding BP given soft blood pressure (MAP 83), restart Lisinopril at lower dose tomorrow. Exam Vital Signs Temp Pulse Resp BP Pulse Ox O2 Del Method 97.6 F 88 18 127/75 97 Room Air 08/09/24 12:00 08/09/24 12:00 08/09/24 12:00 08/09/24 12:00 08/09/24 12:08/09/24 12:00 Narrative Exam General Appearance: Alert & Oriented X3, well-nourished female who is lying in bed in no acute distress HEENT: Skull symmetrical and atraumatic. Conjunctivae pink and moist. Pupils equal, round, reactive to light and accommodation (PERRL). External ear without lesion or discharge. Straight, nares patient, mucosa pink, no discharge. No thyroid nodule appreciated. No cervical lymphadenopathy. Cardio: Normal Rate and Rhythm with S1 and S2 heart sounds. No murmurs or extra heart sounds auscultated. No bruits on carotid auscultation. No peripheral edema or cyanosis. Lungs: Symmetric with good expansion. Chest and back non-tender. Breath sounds vesicular without crackles, wheezing or rhonchi Abdomen: Non-tender, Non-distended, Normal Reactive Bowel Sounds Neuro: Alert, cooperative, oriented to person, place, and time. Speech clear. CN grossly intact. Upper motor strength 5/5 and Lower motor strength 5/5. Sensation intact. Objective Labs 08/10/24 05:37 08/10/24 05:37 Labs: Laboratory Results - last 24 hr 08/09/24 05:27 WBC 8.0 RBC 4.56 Hgb 13.7 Hct 40.5 L MCV 89 MCH 30.0 MCHC 33.8 RDW Std Deviation 42.1 Plt Count 313 Neut % (Auto) 60 Lymph % (Auto) 28 [place] % (Auto) 9 Eos % (Auto) 2 Baso % (Auto) 0 Neut # (Auto) 4.8 Lymph # (Auto) 2.3 [place] # (Auto) 0.7 Eos # (Auto) 0.2 Baso # (Auto) 0.0 Immature Gran # (Auto) 0.02 H Absolute Nucleated RBC 0.00 Immature Gran % 0 Nucleated RBC % 0 Sodium 141 Potassium 3.8 Chloride 104 Carbon Dioxide 26.5 Anion Gap 11 BUN 18 Creatinine 1.3 Estim Creat Clear Calc 39.1 L eGFR 54 L BUN/Creatinine Ratio 14 Glucose 100 Calculated Osmolality 283 Calcium 9.7 Corrected Calcium 9.7 Phosphorus 4.2 Magnesium 2.1 Total Bilirubin 0.5 AST 20 ALT 21 Alkaline Phosphatase 67 Total Protein 6.9 Albumin 4.4 Globulin 2.5 Albumin/Globulin Ratio 1.8 Quality Measures Quality Measures VTE prophylaxis (Heparin subcut) Advance care planning discussed with:: patient Assessment & Plan Assessment Current Active Medications: Generic Name Dose Route Start Last Admin Trade Name Freq PRN Reason Stop Dose Admin Acetaminophen 650 mg 08/07/24 17:51 Acetaminophen 325 Mg Tablet PO 09/06/24 17:50 Q6H PRN Mild Pain 1-3 or Fever >100.4 Hydrocodone Bitart/Acetaminophen 1 tab 08/07/24 17:51 Hydrocodone/Apap 5/325 Tablet PO 08/12/24 17:50 Q4HR PRN PAIN SCALE 4-6 (Moderate Aspirin 81 mg 08/07/24 18:15 08/09/24 08:08 Aspirin Ec 81 Mg Tabec PO 09/06/24 18:14 81 mg QDAY EVELINE Administration Atorvastatin Calcium 40 mg 08/07/24 21:00 08/08/24 20:29 Atorvastatin Calcium 20 Mg Tablet PO 09/06/24 20:59 40 mg HS EVELINE Administration Clopidogrel Bisulfate 75 mg 08/08/24 14:00 08/09/24 08:08 Clopidogrel Bisulfate 75 Mg Tablet PO 09/07/24 13:59 75 mg QDAY EVELINE Administration Heparin Sodium (Porcine) 5,000 unit 08/07/24 21:00 08/09/24 08:08 Heparin Sod Inj 5000 Unit/Ml Vial SC 08/21/24 20:59 5,000 unit Q12HR EVELINE Administration Lisinopril 20 mg 08/08/24 09:00 08/09/24 08:08 Lisinopril 20 Mg Tablet PO 09/07/24 08:59 Not Given QDAY EVELINE Polyethylene Glycol 17 gm 08/09/24 09:00 08/09/24 09:31 Polyethylene Glycol 17 Gm Packet PO 09/08/24 08:59 17 gm QDAY EVELINE Administration Plan Patient is a 83-year-old male with a past medical history of hypertension on lisinopril 20 mg daily who was admitted for CVA work up. # Embolic infarct of right caudate nucleus and right parietal lobe #CVA Etiology: Stroke can not be ruled out given history of left upper extremity weakness, given past medical history of hypertension. Last well time was greater than >24 hours, patient out of TPA window. No Permissive HTN. Pending recommendations by neurology for MRI. DDx: Upper brachial plexus can not be ruled out given externally rotated arm vs lower brachial plexus injury given clawed fingers. No loss of sensation. vs less likely myopathy. 08/09/2024-no motor deficits noted, NIHSS 0 Diagnostics: CT Head (08/07/2024): Negative for acute hemorrhage, mass effect or midline shift EKG (08/07/2023): Sinus Rhythm UA negative CTA head neck shows 80 to 90% stenosis of the proximal right carotid artery MRI obtained and shows a small embolic type acute infarct of the right caudate nucleus and right parietal lobe Triglycerides 194 Total cholesterol 224 LDL 133 Hemoglobin A1c 5.7 Plan: -Echo pending -Aspirin 81 mg Qday -Atorvastatin 40 mg HS -Plavix 75 p.o. daily -Neuro Checks -Bedside swallow screen and evaluation -Euglycemia and avoid Hyperthermia -Acetaminophen PRN -Patient out of TPA window, symptoms first started >24 hours ago. No need for permissive HTN, Restarted Lisinopril -Consult Neurology, Dr. Lockwood, appreciate recommendations #HTN Patient has a past medical hisotry of hypertension on Lisnopril 20 mg Qday. Given patient is out of TPA window and last well time has been greater than 24 hours, restart Lisinopril 20 mg Qday on 08/08/2023 at 9:00 AM. 08/09/2024 Given soft blood pressure but MAP 83, held Lisinopril and will restart tomorrow at a lower dose. Lisinopril 10 mg Qday. Plan -Lisinopril 20 mg Qday-HOLD for 08/09/2024 -Restart Lisinopril 10 mg Qday on 08/10/2024 AM -if systolic BP >180 or Diastolic BP >110 may given Labetolol. Health Maintenance: Disp: Pt is currently admitted to floors for further management of CVA work up, awaiting echo FEN: regular diet DVT: on subQ heparin Code: Full Code - The patient's plan was discussed with attending Dr. Cordova and senior residents Dr. Blanka Britt MD PGY1 Internal Medicine Attending Provider Attestation/Addendum I attest that I was physically present for the evaluation, physical examination, lab and imaging review of the patient with the residents. I discussed the case with the residents and agree with the findings and plans of care as documented above. At bedside today, patient states he is feeling well and does not have any complaints. His left upper arm weakness has resolved. Able to tolerate diet well and ambulate without help. CTA head showed 80 to 90% stenosis of proximal right carotid artery, MRI brain showed small embolic type of acute infarct in right caudate nucleus and right parietal lobe. Continues to be on aspirin, Plavix, atorvastatin. Awaiting echocardiography bubble study. Dariana Cordova MD
[2024-08-09] MEDS: ATORVASTATIN CALCIUM 20 MG TABLET 40 MG PO (21:54)
--- NOTE | 2024-08-09 22:37 | PD.VPROG1 ---
Telemedicine visit statement This visit was conducted with the use of phone was obtained on 08/09/24. Documentation for date of: 08/09/24 Subjective Subjective [facility]val [facility]: [facility] present with left upper extremity weakness, which got significantly improved since admission. No new symptoms reported. Virtual exam Vital Signs Temp Pulse Resp BP Pulse Ox O2 Del Method 97.8 F 99 20 111/83 94 L Room Air 08/09/24 20:00 08/09/24 20:00 08/09/24 20:00 08/09/24 20:00 08/09/24 20:00 08/09/24 20:00 Objective Labs 08/09/24 05:27 08/09/24 05:27 Labs: Laboratory Results - last 24 hr 08/09/24 05:27 WBC 8.0 RBC 4.56 Hgb 13.7 Hct 40.5 L MCV 89 MCH 30.0 MCHC 33.8 RDW Std Deviation 42.1 Plt Count 313 Neut % (Auto) 60 Lymph % (Auto) 28 [place] % (Auto) 9 Eos % (Auto) 2 Baso % (Auto) 0 Neut # (Auto) 4.8 Lymph # (Auto) 2.3 [place] # (Auto) 0.7 Eos # (Auto) 0.2 Baso # (Auto) 0.0 Immature Gran # (Auto) 0.02 H Absolute Nucleated RBC 0.00 Immature Gran % 0 Nucleated RBC % 0 Sodium 141 Potassium 3.8 Chloride 104 Carbon Dioxide 26.5 Anion Gap 11 BUN 18 Creatinine 1.3 Estim Creat Clear Calc 39.1 L eGFR 54 L BUN/Creatinine Ratio 14 Glucose 100 Calculated Osmolality 283 Calcium 9.7 Corrected Calcium 9.7 Phosphorus 4.2 Magnesium 2.1 Total Bilirubin 0.5 AST 20 ALT 21 Alkaline Phosphatase 67 Total Protein 6.9 Albumin 4.4 Globulin 2.5 Albumin/Globulin Ratio 1.8 Assessment & Plan Assessment (1) Acute ischemic stroke: Presented with acute onset of left upper extremity weakness and paresthesia MRI brain showed tiny acute lacunar infarct in the right caudate nucleus CT angiogram: 80-90% stenosis proximal right internal carotid artery No cerebral arterial large vessel occlusions or thrombus MRA: Negative for vascular pathology Echocardiogram: normal, negative bubble study. Continue with aspirin, Plavix and statin Even though the CT angiogram showed significant right internal carotid artery stenosis which is an asymptomatic side he would need evaluation by vascular surgery or cardiology as an outpatient but needs aggressive medical management with dual antiplatelet agent and statin for now to prevent further ischemic events. Patient is stable neurology standpoint for discharge (2) Hypertension: Continue with lisinopril
[2024-08-10] VITALS: BP 123/74; PULSE 84; PULSE 86; RESP 20; TEMP 36.4; O2SAT 93
[2024-08-10 03:49] VITALS: PULSE 81
[2024-08-10 04:00] VITALS: BP 131/83; PULSE 83; RESP 20; TEMP 36.3; O2SAT 94
[2024-08-10 05:05] VITALS: PULSE 102; RESP 20; RESP 95
[2024-08-10 06:44] LABS: Basophils % (Auto) 0 % (0-2.5); Eosinophils # (Auto) 0.2 Thou/mm3 (0.0-0.5); Eosinophils % (Auto) 3 % (0-10); Hematocrit 40.7 % (41.0-53.0); Hemoglobin 13.9 g/dL (13.5-16.0); Immature Granulocytes % (Auto) 0 % (0-0); Immature Granulocytes Auto 0.01 Thou/mm3 (0.00-0.00); Lymphocytes # (Auto) 1.9 Thou/mm3 (1.0-4.8); Lymphocytes % (Auto) 26 % (10-50); Mean Corpuscular HGB Conc 34.2 g/dl (31.0-37.0); Mean Corpuscular Hemoglobin 30.2 pg (25.0-35.0); Mean Corpuscular Volume 89 fL (80-100); Monocytes # (Auto) 0.7 Thou/mm3 (0.0-0.8); Monocytes % (Auto) 10 % (0-12); Neutrophils # (Auto) 4.6 Thou/mm3 (1.8-7.7); Neutrophils % (Auto) 61 % (37-80); Nucleated Red Blood Cell % 0 /100 WBC (0); Platelet Count 285 Thou/mm3 (140-440); RDW Standard Deviation 41.5 fL (35.1-43.9); White Blood Count 7.4 Thou/mm3 (3.8-10.6)
[2024-08-10 07:11] LABS: Alanine Aminotransferase 23 U/L (10-49); Albumin, Serum 4.2 gm/dL (3.4-4.8); Albumin/Globulin Ratio 1.6 (1.2-2.2); Alkaline Phosphatase 67 U/L (46-116); Anion Gap 9 (7-16); Aspartate Amino Transferase 25 U/L (0-34); BUN/Creatinine Ratio 15 Ratio (12-20); Bilirubin,Total 0.6 mg/dL (0.3-1.2); Blood Urea Nitrogen 18 mg/dL (9-23); Calcium 9.4 mg/dL (8.3-10.6); Calcium (Corrected) 9.4 mg/dL (8.5-10.1); Carbon Dioxide 25.8 mMol/L (20.0-31.0); Chloride 105 mMol/L (98-107); Creatinine (Component) 1.2 mg/dL (0.6-1.3); Estimated Creatinine Clearance 42.8 mL/min (>60); Globulin 2.6 gm/dL (2.3-3.5); Glucose 102 mg/dL (74-106); Osmolality,Calculated 281 (275-295); Phosphorous 3.2 mg/dL (2.4-5.1); Sodium 140 mMol/L (136-145); Total Protein 6.8 gm/dL (5.7-8.2); eGFR 60 See Note
[2024-08-10 08:00] VITALS: BP 112/72; PULSE 75; PULSE 95; RESP 18; TEMP 36.2; O2SAT 95
[2024-08-10] MEDS: ASPIRIN EC 81 MG TABEC PO (08:10)
[2024-08-10] MEDS: CLOPIDOGREL BISULFATE 75 MG TABLET PO (08:10)
[2024-08-10] MEDS: HEPARIN SOD INJ 5000 UNIT/ML VIAL SC (08:10)
[2024-08-10] MEDS: POLYETHYLENE GLYCOL 17 GM PACKET PO (08:10)
[2024-08-10 12:00] VITALS: BP 143/94; PULSE 102; PULSE 95; RESP 17; TEMP 36.1; O2SAT 96
--- NOTE | 2024-08-10 14:13 | ESDS_ITS ---
<Statement entered by Jacky Moscoso MD - 08/10/24 14:19> I saw and examined the patient, and I agree with current management stated by Dr Lorenza MD,PGY1. Plan of care was discussed with the attending physician and resident physician. Disclaimer: Despite multiple revisions, due to the dictation software being used, the document bellow may not be free of grammatical errors including phonetic/typographic errors. However, this does not deter from our commitment to providing health care in the patient's best interest in mind. Dr. Blanka MD, PGY 2 Planned Discharge Date 08/10/24 DS: Providers Provider Date of admission: 08/07/24 17:51 Primary care physician: ALEX Garber Admitting Provider: Dariana Cordova MD Attending Provider on Admission: Alexis Fontanez DO Consults: 08/07/24 17:02 Consult to Neurology / Tele-Neurology Stat Comment: Consulting Provider: Denis Lockwood 08/07/24 18:06 Referral Physical Therapy Routine Comment: Physician Instructions: DS: Diagnosis Problem List Completed Was Problem List Reviewed/Reconciled?: Yes Hospital Course Hospital Course Hospital course: Summary: Patient is a 83-year-old male with a past medical history of hypertension who was admitted for CVA work up with a chief complain of upper motor weeakness and found to have right internal carotid artery stenosis and 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 ER Course: In the emergency room, patient's vitals were stable blood pressure was 133/82, heart rate 91, respiratory rate 19, and saturating well on room air. CMP within normal limits. GFR greater than 60. CBC unremarkable. Glucose 109. Corrected calcium 10.5. BNP less than 20. EKG findings sinus rhythm. UA negative. Head CT negative. Hospital Course: Hospital course, head and neck CTA showed 80 to 90% stenosis proximal right internal carotid with no cerebral arterial large vessel occlusion or thrombus. MRI brain was done showing a small embolic type acute infarct right caudate nucleus and right parietal lobe with no mass affect in the ventricular system. Neurolog consulted for embolic infarct and patient was started on aspirin 81 mg, Plavix 75 mg and continued atorvastatin 40 mg p.o. at bedtime. Physical therapy consulted no additional PT recommended at this time. Patient experienced soft blood pressure lisinopril 20 mg was lowered to lisinopril 10 milligram upon discharge. UA negative EKG sinus rhythm with right bundle branch block and troponins within normal limits. Echocardiogram was negative bubble study no evidence of PFO or ASD. Estimated ejection fraction 50 is 60%. Mild mitral and tricuspid regurgitation. No motor deficits noted. Instructions: -Please Continue Aspirin 81 mg once a day, Atorvastatin 40 mg at night, and Clopidogrel 75 mg once a day for you stroke -Please reduce your home lisinopril form 20 mg to 10 mg once a day. 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 Dr. Cordova and senior residents Dr. Blanka Britt MD PGY1 Internal Medicine Time Spent with Patient Time attestation: Total time spent providing and/or coordinating discharge services: at least 35 minutes of care/coordination. Exam Vital Signs Temp Pulse Resp BP Pulse Ox O2 Del Method 96.9 F 95 17 143/94 H 96 Room Air 08/10/24 12:08/10/24 12:08/10/24 12:08/10/24 12:08/10/24 12:08/10/24 12:00 Narrative Exam General Appearance: Alert & Oriented X3, well-nourished male who is lying in bed in no acute distress HEENT: Skull symmetrical and atraumatic. Conjunctivae pale pink and moist. Pupils equal, round, reactive to light and accommodation (PERRL). External ear without lesion or discharge. Straight, nares patient, mucosa pink, no discharge. Cardio: Normal Rate and Rhythm with S1 and S2 heart sounds. No murmurs or extra heart sounds auscultated. No bruits on carotid auscultation. No peripheral edema or cyanosis. Lungs: Symmetric with good expansion. Chest and back non-tender. Breath sounds vesicular without crackles, wheezing or rhonchi Abdomen: Non-tender, Non-distended, Normal Reactive Bowel Sounds Neuro: Alert, cooperative, oriented to person, place, and time. Speech clear. CN grossly intact. Upper motor strength 5/5 and Lower motor strength 5/5. Sensation intact. Discharge Plan Plan Patient Disposition: HOME (Self Care) Patient condition on transfer: Stable Care Plan Goals: Instrucciones: -Contin?e con aspirina 81 mg rakesh vez al d?a, atorvastatina 40 mg por la noche y clopidogrel 75 mg rakesh vez al d?a para carr accidente cerebrovascular. -Reduzca carr forma casera de lisinopril de 20 mg a 10 mg rakesh vez al d?a. Por favor, suspenda carr medicaci?n si carr presi?n arterial sist?lica <100 o diast?lica <60 -Contin?e con Miralax seg?n sea necesario para el estre?imiento en casa. -Contin?e con todos los dem?s medicamentos seg?n lo recetado. -Anne Marie un seguimiento con carr proveedor de atenci?n primaria dentro de rakesh semana despu?s del javier. -Si claudia s?ntomas empeoran, busque atenci?n m?dica inmediata y regrese a la jzoef de emergencias m?s cercana. -Si no tiene un proveedor de atenci?n primaria, puede realizar un seguimiento en el [facility] en [address], [place] [address], tel?fono Instructions: -Please Continue Aspirin 81 mg once a day, Atorvastatin 40 mg at night, and Clopidogrel 75 mg once a day for you stroke -Please reduce your home lisinopril form 20 mg to 10 mg once a day. Please hold your medication if your systolic BP <100 or diastolic BP <60 -Please continue Miralax as needed for constipation at home -Please continue all other medication as prescribed -Please follow up with your primary care provider within one week of discharge -If your symptoms worsen, please seek immediate medical attention and return to your nearest emergency room -If you do not have a primary care provider, [facility] at [address], [place] [address], Prescriptions/Referrals Prescriptions/Med Rec: New aspirin 81 mg Tablet,Delayed Release (Dr/Ec) 81 mg PO QDAY 30 Days Qty: 30 0RF atorvastatin 40 mg tablet 40 mg PO HS 30 Days Qty: 30 0RF clopidogrel 75 mg Tablet 75 mg PO QDAY 30 Days Qty: 30 0RF polyethylene glycol 3350 17 gram/dose powder 17 g PO QDAY PRN (Reason: constipation) 30 Days Qty: 119 0RF lisinopril 10 mg tablet 10 mg PO QDAY Qty: 30 0RF Rx Instructions: Hold if SBP drops below 100 and DBP< 60 mmHg Continued calcium carbonate-vitamin D3 600 mg-10 mcg (400 unit) tablet 1 tab PO QDAY Patient Comments: TAKE 1 TAB BY MOUTH EVERY DAY WITH A MEAL Discontinued lisinopril 20 mg tablet 20 mg PO QDAY Patient Comments: TAKE 1 TABLET BY MOUTH EVERY DAY FOR 30 DAYS Referrals: Johny Worley FNP [Primary Care Provider] - Patient/Caregiver Discharge Instructions Other Discharge Activity Instructions:: Instrucciones: -Contin?e con aspirina 81 mg rakesh vez al d?a, atorvastatina 40 mg por la noche y clopidogrel 75 mg rakesh vez al d?a para carr accidente cerebrovascular. -Reduzca carr forma casera de lisinopril de 20 mg a 10 mg rakesh vez al d?a. Por favor, suspenda carr medicaci?n si carr presi?n arterial sist?lica <100 o diast?lica <60 -Contin?e con Miralax seg?n sea necesario para el estre?imiento en casa. -Contin?e con todos los dem?s medicamentos seg?n lo recetado. -Anne Marie un seguimiento con carr proveedor de atenci?n primaria dentro de rakesh semana despu?s del javier. -Anne Marie un seguimiento con carr proveedor de atenci?n primaria dentro de rakesh semana despu?s del javier. -Si claudia s?ntomas empeoran, busque atenci?n m?dica inmediata y regrese a la jozef de emergencias m?s cercana. -Si no tiene un proveedor de atenci?n primaria, puede realizar un seguimiento en el [facility] en [address], [place] [address], tel?fono Instructions: -Please Continue Aspirin 81 mg once a day, Atorvastatin 40 mg at night, and Clopidogrel 75 mg once a day for you stroke -Please reduce your home lisinopril form 20 mg to 10 mg once a day. Please hold your medication if your systolic BP <100 or diastolic BP <60 -Please continue Miralax as needed for constipation at home -Please continue all other medication as prescribed -Please follow up with your primary care provider within one week of discharge -Please follow up with your primary care provider within one week of discharge -If your symptoms worsen,please seek immediate medical attention and return to your nearest emergency room -If you do not have a primary care provider, [facility] [address], [place] [address], Education Materials: Stroke and Heart Disease, Symptoms of Stroke, Discharge Instructions for Stroke, Risk Factors for Stroke Print Language: Citizen Of [place] Stand Alone Forms: Kristal Award Info., Patient Portal Info Letter Discharge Order Discharge Orders: Discharge (Routine); Ordered 08/10/24 Ordered By: Jacky Moscoso Quality Discharge Quality Measures VTE prophylaxis Attestestation MD Attestation I attest that I was physically present for the evaluation, physical examination, lab and imaging review of the patient with the residents. I discussed the case with the residents and agree with the findings and plans of care as documented above. Echocardiography negative for bubble study. Patient continues to be without symptoms and feels well. We will discharge patient on dual antiplatelets and statin. Recommended to follow up with PCP, Neurology in 1-2 weeks. Also recommended to follow with cardiology/vascular surgery for evaluation of carotid stenosis. Dariana Cordova MD
== END 2024-08-10 13:34 | disposition home or self-care (01) | DRG 64 ==
LOC: SERX 17:17 → SERHOLD 18:29 → S3NX 21:35
PROVIDERS: Registered Nurse General Practice; Admitting Provider Student in an Organized Health Care Education/Training Program; Emergency Provider Emergency Medicine; PCP Nurse Practitioner Family; Visit Provider Student in an Organized Health Care Education/Training Program
DX: I63.131 Cerebral infarction due to embolism of right carotid artery (principal); I63.441 Cerebral infarction due to embolism of right cerebellar artery; G83.24 Monoplegia of upper limb affecting left nondominant side; R29.703 NIHSS score 3; I10 Essential (primary) hypertension; I45.10 Unspecified right bundle-branch block; Z79.02 Long term (current) use of antithrombotics/antiplatelets; Z79.82 Long term (current) use of aspirin; Z79.899 Other long term (current) drug therapy
CPT/HCPCS: 36415; 70450; 70496; 70498; 70544; 80053; 80061; 80307; 81001; 83036; 83615; 83735; 83880; 84100; 84443; 85025; 85610; 85730; 93005; 93225; 93306; 96372; 97162; 99285; A4649; J1643; Q9967; A9270